=== PATIENT | female | born 1950 | race Caucasian/White ===

== ENCOUNTER 2016-12-31 20:23 | Emergency (ER) | payer MEDICARE ==
[2016-12-31 20:50] VITALS: BP 118/68
--- NOTE | 2016-12-31 21:21 | UC ---
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 Severity Initially: Mild Severity Currently: Moderate Pain Intensity: 6 Aggravating Factor(s): Standing, Ambulation Alleviating Factor(s): Rest Able to Bear Weight: Yes - Allergies/Home Medications Allergies/Adverse Reactions: Allergies Allergy/AdvReac Type Severity Reaction Status Date / Time Diclofenac Allergy Mild Itching Verified 12/31/16 20:54 [From Voltaren Gel] Propylene Glycol Allergy Mild Itching Verified 12/31/16 20:54 [From Voltaren Gel] Cefuroxime Allergy See Comment Verified 12/31/16 20:54 Moxifloxacin [From Avelox] Allergy GI Upset Verified 12/31/16 20:54 Naproxen Allergy Coughing Verified 12/31/16 20:54 Mercaptopurine AdvReac Severe See Comment Verified 12/31/16 20:54 Metformin AdvReac Intermediate GI Upset Verified 12/31/16 20:54 Aspirin [From Anacin] AdvReac Mild See Comment Verified 12/31/16 20:54 Caffeine [From Anacin] AdvReac Mild See Comment Verified 12/31/16 20:54 Levofloxacin [From Levaquin] AdvReac Mild See Comment Verified 12/31/16 20:54 Azithromycin [From Zithromax] AdvReac GI Verified 12/31/16 20:54 Clindamycin AdvReac GI Verified 12/31/16 20:54 Metoprolol AdvReac Coughing Verified 12/31/16 20:54 Home Medications: Home Medications Mycophenolate Mofetil [Cellcept] 500 mg PO BID 12/31/16 [History Confirmed 12/31] Omeprazole CAP* [Prilosec CAP* 20 MG] 20 mg PO DAILY 12/31/16 [History Confirmed 12/31/16] PMH/Surg Hx/FS Hx/Imm Hx Previously Healthy: No Cardiovascular History: Hypertension GI/ History: Gastroesophageal Reflux, Other Other GI/ History: Autoimmune hepatitis Other History Of: Anticoagulant Therapy - aspirin therapy - Surgical History Surgical History: Yes Surgery Procedure, Year, and Place: tonsils '59, right elbow 89, exploratory abd ', right knee 83, left knee 04/13, B/L CARPAL TUNNEL (right hand 08/14, left hand 01/12), liver biopsy 08/17, TUBAL LIGATION; Mitral valve repair 2006: [facility] ([place])- EVIE-CHAMBERLAIN PHYSIO ANNULOPLASTY RING - REPORT SCANNED IN EMR CHART - Family History Known Family History: Positive: Other - liver disease - Social History Occupation: Employed Full-time Lives: Alone Alcohol Use: None Substance Use Type: None Smoking Status (MU): Never Smoked Tobacco - Immunization History Most Recent Influenza Vaccination: [id number] Most Recent Tetanus Shot: UNKNOWN Review of Systems Constitutional: Negative Skin: Bruising - right proximal middle finger Eyes: Negative ENT: Negative Respiratory: Negative Cardiovascular: Negative Gastrointestinal: Negative Genitourinary: Negative Motor: Negative Neurovascular: Negative Musculoskeletal: Negative, Arthralgia - right 5th mt and proximal right 3rd finger Neurological: Negative Psychological: Negative Is Patient Immunocompromised?: Yes - on cellcept All Other Systems Reviewed And Are Negative: Yes Physical Exam Triage Information Reviewed: Yes Appearance: Well-Appearing, Pain Distress - mild, Obese Vital Signs: Initial Vital Signs Temp 98.7 F 12/31/16 20:30 Pulse 71 12/31/16 20:30 Resp 18 12/31/16 20:30 BP 118/68 12/31/16 20:30 Pulse Ox 99 12/31/16 20:30 Vital Signs Reviewed: Yes Eye Exam: Normal Eyes: Positive: Conjunctiva Clear ENT Exam: Normal ENT: Positive: Normal ENT inspection, Hearing grossly normal. Negative: Nasal congestion, Nasal drainage, Trismus, Muffled/hoarse voice Dental Exam: Normal Neck exam: Normal Neck: Positive: Supple, Nontender Respiratory Exam: Normal Respiratory: Positive: No respiratory distress, No accessory muscle use Cardiovascular Exam: Normal Cardiovascular: Positive: RRR, Pulses Normal, Brisk Capillary Refill Musculoskeletal Exam: Normal Musculoskeletal: Positive: Strength Intact, ROM Intact, Edema @ - right 3 finger proximal, right lateral aspect of foot Neurological Exam: Normal Neurological: Positive: Alert, Muscle Tone Normal Psychological Exam: Normal Skin Exam: Normal Diagnostics - Radiology No standard instances Xray Interpretation: No Acute Changes Radiology Interpretation Completed By: ED Physician, Radiologist Lower Extremity Course/Dx - Course Course Of Treatment: refused pain med pt perfers to ice rest elevate, and follow with pcp prn - Differential Dx/Diagnosis Differential Diagnosis/HQI/PQRI: Arthritis, Contusion, Fracture (Closed), Sprain , Strain Provider Diagnoses: Contusion right lateral foot and proximal right middle finger Discharge - Discharge Plan Condition: Stable Disposition: HOME Patient Education Materials: Foot Contusion (ED), RICE Therapy (ED), Ice Pack Application (ED) Referrals: Jairo Brantley DO [Primary Care Provider] - 3 Days
--- NOTE | 2016-12-31 21:36 | RAD ---
Indication: RIGHT third finger pain following injury. Comparison: No relevant prior exams available on the [facility] PACS for comparison. Technique: 3 views RIGHT third finger. 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 Negative for fracture or dislocation. Mild apex ulnar angulation at the distal interphalangeal joint is likely related to degenerative arthropathy. Mild fusiform soft tissue swelling.
--- NOTE | 2016-12-31 21:41 | RAD ---
Indication: Pain between the fourth and fifth metatarsals following injury. Comparison: No relevant prior exams available on the [facility] [place] for comparison. Technique: AP, lateral, and oblique views RIGHT foot. The calcaneal tuberosity is incompletely included in the [id number] on the lateral view. Report: Bone density appears decreased. Negative for fracture. Second toe hammertoe deformity. Soft tissue swelling most prominent over the dorsum of the forefoot. IMPRESSION: Negative for fracture.
== END 2016-12-31 22:02 | disposition home or self-care (01) ==
LOC: UCCORT 20:23
DX: S90.31XA Contusion of right foot, initial encounter (principal); S60.031A Contusion of right middle finger without damage to nail, initial encounter; W20.8XXA Other cause of strike by thrown, projected or falling object, initial encounter; Y93.E1 Activity, personal bathing and showering; Y92.002 Bathroom of unspecified non-institutional (private) residence as the place of occurrence of the external cause; Y99.9 Unspecified external cause status; I10 Essential (primary) hypertension; K21.9 Gastro-esophageal reflux disease without esophagitis; K75.4 Autoimmune hepatitis
CPT/HCPCS: 73140; 99211; G0463